=== PATIENT | female | born 1955 | race Caucasian/White ===

== ENCOUNTER 2017-08-14 13:58 | Inpatient (IN) | payer MEDICAID ==
[~2017-08-14] VITALS: Ht 167.6 cm; Wt 68.0 kg
[2017-08-14] VITALS (21 sets, daily range): BP systolic 103–154; BP diastolic 61–94
[2017-08-14] MEDS ORDERED: potassium Cl 20 mEq SR tablet PO PRN (15:00)
[2017-08-14] MEDS ORDERED: HYDROmorphone inj. 0.5 MG/0.5 ML DISP.SYRIN IV PRN ×2 (15:00)
[2017-08-14] MEDS ORDERED: magnesium Cl slow-release 64mg tablet PO PRN (15:00)
[2017-08-14] MEDS ORDERED: magnesium 2GM in 50ml NS 50 ML IV PRN (15:00)
[2017-08-14] MEDS ORDERED: magnesium 4gm in 100ml NS 100 ML IV PRN (15:00)
[2017-08-14] MEDS ORDERED: magnesium hydroxide 30ml (MOM) UD suspension PO PRN (15:00)
[2017-08-14] MEDS ORDERED: acetaminophen 325mg tablet PO PRN ×2 (15:00)
[2017-08-14] MEDS ORDERED: potassium Cl 40MEQ/NS 500ml 500 ML IV PRN (15:00)
[2017-08-14] MEDS ORDERED: mag hydrox/Alum hydrox/simeth 30ml oral suspension PO PRN (15:00)
[2017-08-14] MEDS ORDERED: HYDROcodone/acetaminophen 5mg/325mg tablet PO PRN (15:00)
[2017-08-14] MEDS ORDERED: BUPIVAcaine/PF 2.5mg/ml (0.25%) 10ml vial ONE (15:25)
[2017-08-14] MEDS ORDERED: BUPIVAcaine 0.5% inj/PF 30 ml vial ONE (15:26)
[2017-08-14] MEDS: normal saline 1000ml 1,000 ML IV SCH (15:41)
[2017-08-14] MEDS: ceFAZolin 1GM/D5W- ADD-VANTAGE 50 ML IV SCH ×3 (15:42→23:14)
[2017-08-14] MEDS ORDERED: midazolam 2 mg/2 ml injection ONE (16:17)
[2017-08-14] MEDS ORDERED: fentaNYL /PF 50mcg/ml 5ml ampule ONE (16:17)
[2017-08-14] MEDS ORDERED: sevoflurane 250ml liquid IH ONE (16:18)
[2017-08-14] MEDS ORDERED: rocuronium 10mg/ml inj IV ONE (16:36)
[2017-08-14] MEDS ORDERED: propofol inj 20 ML IV ONE (16:36)
[2017-08-14] MEDS ORDERED: LIDOcaine 2% (20mg/ml) 5ml vial ONE (16:36)
[2017-08-14] MEDS ORDERED: dexamethasone sod phosphate 4mg/ml inj. ONE (16:36)
[2017-08-14] MEDS ORDERED: glycopyrrolate 0.2mg/ml inj ONE (16:38)
[2017-08-14] MEDS ORDERED: neostigmine methylsulfate 1 MG/ML 10ml vial ONE (16:38)
[2017-08-14] MEDS ORDERED: gentamicin 40 MG/1 ML inj ONE (16:59)
[2017-08-14] MEDS ORDERED: clindamycin phosphate 150mg/ml inj. ONE (16:59)
[2017-08-14] MEDS ORDERED: ondansetron/PF 4mg/2ml inj IV PRN ×2 (17:40→18:25)
[2017-08-14] MEDS ORDERED: HYDROmorphone 1 mg/ml syringe IV PRN (17:40)
[2017-08-14] MEDS ORDERED: ipratropium/albuterol 3ml nebule IH ONE (17:45)
[2017-08-14] MEDS ORDERED: ipratropium/albuterol 3ml nebule ONE (17:48)
[2017-08-14] MEDS ORDERED: albuterol 2.5 MG/3 ML nebule NEB ONE (18:05)
[2017-08-14] MEDS ORDERED: albuterol 2.5 MG/3 ML nebule ONE (18:05)
[2017-08-14] MEDS ORDERED: ringers solution, lacted 1,000 ML IV SCH (18:24)
[2017-08-14] MEDS ORDERED: proCHLORperazine 10 MG/2 ml inj IV PRN (18:25)
[2017-08-14] MEDS ORDERED: meperidine/PF 25mg/ml syringe IV PRN ×2 (18:25)
[2017-08-14] MEDS ORDERED: morphine 4 MG/ML inj SYRINge IV PRN ×2 (18:25)
[2017-08-14] MEDS: meperidine/PF 25mg/ml syringe IV PRN ×3 (18:36→19:39)
[2017-08-14] MEDS ORDERED: acetaminophen 1,000mg/100ml IV 100 ML IV ONE (18:40)
[2017-08-14 19:26] LABS: ABG BASE EXCESS -3.7 mmol/L (-2.0-3.0); ABG OXYGEN SATURATION 94.2 % (95-98); ABG PCO2 (T) 31.2 mmHg (32.0-45.0); ABG PH (T) 7.422 (7.350-7.450); ABG PO2 (T) 71.2 mmHg (83-108); ALLEN'S TEST Positive; FCOHb 0.1 % (0.5-1.5); FLOW 6 L/min; FMetHb 0.2 % (0.3-1.12); FO2Hb 93.9 % (94-100); PATIENT TEMPERATURE 36.6; TOTAL HEMOGLOBIN 12.1 G/dl (12.0-16.0)
[2017-08-14] MEDS: ceFOXitin 2 GM ADDvantage bag 100 ML IV SCH (22:01)
[2017-08-14] MEDS: morphine 4 MG/ML inj SYRINge IV PRN (22:05)
[2017-08-14 22:08] LABS: BASOPHILS % (AUTO) 0 % (0-1); EOSINOPHILS % (AUTO) 0 % (0-6); HEMATOCRIT 33.6 % (35.0-45.0); HEMOGLOBIN 11.5 g/dl (12.0-16.0); LYMPHOCYTES # (AUTO) 0.2 X10'3 (1.1-4.8); LYMPHOCYTES % (AUTO) 2.1 % (21-51); MEAN CORPUSCULAR HEMOGLOBIN 33.7 PG (27.0-31.0); MEAN CORPUSCULAR HGB CONC 34.2 % (33.0-36.5); MEAN CORPUSCULAR VOLUME 98.5 FL (78-98); MEAN PLATELET VOLUME 8.6 FL (7.4-10.4); MONOCYTES # (AUTO) 0.2 X10'3 (0-0.9); MONOCYTES % (AUTO) 2.4 % (2-12); NEUTROPHILS % (AUTO) 95.5 % (42-75); PLATELET COUNT 95 X10'3 (140-440); RED BLOOD COUNT 3.41 X10'6 (4.20-5.60); RED CELL DISTRIBUTION WIDTH 13.6 % (11.5-14.5); WHITE BLOOD COUNT 10.4 X10'3 (4.5-11.0)
[2017-08-14 22:21] LABS: INR 0.9 INR; PARTIAL THROMBOPLASTIN TIME 32 SECONDS (22-32); PROTHROMBIN TIME 9.8 SECONDS (9.0-12.0)
[2017-08-14 22:22] LABS: ALANINE AMINOTRANSFERASE 35 U/L (12-78); ALBUMIN 2.5 G/DL (3.4-5.0); ALBUMIN/GLOBULIN RATIO 0.7 (1.1-1.5); ALKALINE PHOSPHATASE 64 IU/L (46-116); ANION GAP 12 (8-16); ASPARTATE AMINO TRANSFERASE 58 U/L (10-37); BILIRUBIN,TOTAL 0.5 MG/DL (0.1-1.0); BLOOD UREA NITROGEN 6 MG/DL (7-18); BUN/CREATININE RATIO 9.4 (6.6-38.0); CALCIUM 7.9 MG/DL (8.5-10.1); CHLORIDE 101 MMOL/L (99-107); CREATININE 0.64 MG/DL (0.40-0.90); GLUCOSE 125 MG/DL (70-104); LIPASE 54 U/L (73-393); POTASSIUM 3.1 MMOL/L (3.5-5.1); SODIUM 136 MMOL/L (135-145); TOTAL CARBON DIOXIDE 22.6 MMOL/L (24-32); TOTAL PROTEIN 6.2 G/DL (6.4-8.2); eGFR > 90 ML/MIN
[2017-08-14] MEDS ORDERED: PANT-47 PO (22:50)
[2017-08-14] MEDS ORDERED: CITA20TA2 PO (22:50)
[2017-08-14] MEDS ORDERED: AMLO-93 PO (22:50)
[2017-08-14] MEDS: temazepam 15mg capsule PO PRN (23:12)
[2017-08-14] MEDS: HYDROcodone/acetaminophen 10/325mg tab PO PRN (23:13)
[2017-08-15] MEDS: normal saline 1000ml 1,000 ML IV SCH ×3 (01:17→20:03)
[2017-08-15] MEDS: ceFOXitin 2 GM ADDvantage bag 100 ML IV SCH ×4 (03:04→19:37)
[2017-08-15] MEDS: morphine 4 MG/ML inj SYRINge IV PRN ×3 (03:04→18:54)
[2017-08-15 03:05] LABS: CLARITY,URINE SLIGHTLY CLOUDY (Clear); COLOR,URINE YELLOW (Yellow); GLUCOSE, URINE NEGATIVE (Neg); KETONES,URINE 40 mg/dl (Neg); LEUKOCYTE ESTERASE ,URINE NEGATIVE (Neg); NITRITES, URINE NEGATIVE (Neg); OCCULT BLOOD,URINE NEGATIVE (Neg); PROTEIN,URINE NEGATIVE (Neg); UROBILINOGEN,URINE 0.2 E.U/dL (0.2-1.0)
[2017-08-15 03:10] LABS: UA COLLECTION TYPE STRAIGHT CATH
[2017-08-15 03:18] LABS: BACTERIA,URINE FEW /HPF (Neg); RBC,URINE NONE SEEN /HPF (0-2); SQUAMOUS EPITHELIAL CELL,UR FEW /LPF (FEW); WBC,URINE 0-4 /HPF (0-4)
[2017-08-15 04:00] VITALS: BP 111/59
[2017-08-15 05:19] LABS: BASOPHILS % (AUTO) 0.1 % (0-1); EOSINOPHILS % (AUTO) 0 % (0-6); HEMATOCRIT 32.7 % (35.0-45.0); HEMOGLOBIN 11.2 g/dl (12.0-16.0); LYMPHOCYTES # (AUTO) 0.3 X10'3 (1.1-4.8); LYMPHOCYTES % (AUTO) 3.4 % (21-51); MEAN CORPUSCULAR HEMOGLOBIN 34.2 PG (27.0-31.0); MEAN CORPUSCULAR HGB CONC 34.2 % (33.0-36.5); MEAN CORPUSCULAR VOLUME 100.1 FL (78-98); MEAN PLATELET VOLUME 9.6 FL (7.4-10.4); MONOCYTES # (AUTO) 0.4 X10'3 (0-0.9); MONOCYTES % (AUTO) 3.8 % (2-12); NEUTROPHILS # (AUTO) 9.4 X10'3 (1.8-7.7); NEUTROPHILS % (AUTO) 92.7 % (42-75); PLATELET COUNT 90 X10'3 (140-440); RED BLOOD COUNT 3.27 X10'6 (4.20-5.60); WHITE BLOOD COUNT 10.1 X10'3 (4.5-11.0)
[2017-08-15] MEDS: HYDROcodone/acetaminophen 10/325mg tab PO PRN ×5 (05:27→21:32)
[2017-08-15 06:00] VITALS: BP 122/70
[2017-08-15 06:05] LABS: ALANINE AMINOTRANSFERASE 41 U/L (12-78); ALBUMIN 2.5 G/DL (3.4-5.0); ALBUMIN/GLOBULIN RATIO 0.6 (1.1-1.5); ALKALINE PHOSPHATASE 75 IU/L (46-116); ANION GAP 11 (8-16); ASPARTATE AMINO TRANSFERASE 66 U/L (10-37); BILIRUBIN,TOTAL 0.4 MG/DL (0.1-1.0); BLOOD UREA NITROGEN 7 MG/DL (7-18); BUN/CREATININE RATIO 10.1 (6.6-38.0); CHLORIDE 102 MMOL/L (99-107); CREATININE 0.69 MG/DL (0.40-0.90); GLUCOSE 119 MG/DL (70-104); MAGNESIUM 1.5 MG/DL (1.5-2.4); POTASSIUM 3.5 MMOL/L (3.5-5.1); SODIUM 136 MMOL/L (135-145); TOTAL CARBON DIOXIDE 22.7 MMOL/L (24-32); TOTAL PROTEIN 6.4 G/DL (6.4-8.2); eGFR 86 ML/MIN
[2017-08-15] MEDS: K and/or MAG REPLACEMENT MC SCH ×2 (07:02→07:35)
[2017-08-15] MEDS: ceFAZolin 1GM/D5W- ADD-VANTAGE 50 ML IV SCH (09:49)
[2017-08-15 10:51] VITALS: BP 115/71
[2017-08-15] MEDS: ondansetron/PF 4mg/2ml inj IV PRN (12:43)
[2017-08-15 20:00] VITALS: BP 119/65
[2017-08-15] MEDS: temazepam 15mg capsule PO PRN (22:41)
[2017-08-16] VITALS: BP 123/71
[2017-08-16] MEDS: morphine 4 MG/ML inj SYRINge IV PRN ×5 (00:12→23:43)
[2017-08-16] MEDS: ceFOXitin 2 GM ADDvantage bag 100 ML IV SCH (02:16)
[2017-08-16] MEDS: HYDROcodone/acetaminophen 10/325mg tab PO PRN ×4 (03:37→20:59)
[2017-08-16] MEDS: normal saline 1000ml 1,000 ML IV SCH ×2 (03:40→16:59)
[2017-08-16 06:03] LABS: BASOPHILS # (AUTO) 0.1 X10'3 (0-0.2); BASOPHILS % (AUTO) 1.3 % (0-1); EOSINOPHILS % (AUTO) 0.5 % (0-6); HEMATOCRIT 35.6 % (35.0-45.0); LYMPHOCYTES # (AUTO) 0.7 X10'3 (1.1-4.8); LYMPHOCYTES % (AUTO) 10.2 % (21-51); MEAN CORPUSCULAR HEMOGLOBIN 34.2 PG (27.0-31.0); MEAN CORPUSCULAR HGB CONC 33.6 % (33.0-36.5); MEAN PLATELET VOLUME 9.5 FL (7.4-10.4); MONOCYTES # (AUTO) 0.5 X10'3 (0-0.9); MONOCYTES % (AUTO) 6.6 % (2-12); NEUTROPHILS # (AUTO) 5.6 X10'3 (1.8-7.7); NEUTROPHILS % (AUTO) 81.4 % (42-75); PLATELET COUNT 115 X10'3 (140-440); RED BLOOD COUNT 3.49 X10'6 (4.20-5.60); RED CELL DISTRIBUTION WIDTH 13.3 % (11.5-14.5); WHITE BLOOD COUNT 6.9 X10'3 (4.5-11.0)
[2017-08-16 06:18] LABS: ALANINE AMINOTRANSFERASE 49 U/L (12-78); ALBUMIN 2.6 G/DL (3.4-5.0); ALBUMIN/GLOBULIN RATIO 0.6 (1.1-1.5); ALKALINE PHOSPHATASE 81 IU/L (46-116); ANION GAP 9 (8-16); ASPARTATE AMINO TRANSFERASE 89 U/L (10-37); BILIRUBIN,TOTAL 0.5 MG/DL (0.1-1.0); BLOOD UREA NITROGEN 5 MG/DL (7-18); BUN/CREATININE RATIO 8.1 (6.6-38.0); CALCIUM 8.8 MG/DL (8.5-10.1); CHLORIDE 100 MMOL/L (99-107); CREATININE 0.62 MG/DL (0.40-0.90); GLUCOSE 89 MG/DL (70-104); MAGNESIUM 1.6 MG/DL (1.5-2.4); SODIUM 138 MMOL/L (135-145); TOTAL CARBON DIOXIDE 28.7 MMOL/L (24-32); TOTAL PROTEIN 6.9 G/DL (6.4-8.2); eGFR > 90 ML/MIN
[2017-08-16 07:10] LABS: POTASSIUM 2.9 MMOL/L (3.5-5.1)
[2017-08-16] MEDS: pantoprazole 40mg Tablet.DR PO SCH (08:00)
[2017-08-16] MEDS: K and/or MAG REPLACEMENT MC SCH (08:00)
[2017-08-16] MEDS: methylnaltrexone br 12mg/0.6ml inj***SubQ only SQ SCH (08:01)
[2017-08-16 08:19] VITALS: BP 140/79
[2017-08-16] MEDS: potassium Cl 40MEQ/NS 500ml 500 ML IV PRN ×2 (10:47→17:49)
[2017-08-16 11:00] VITALS: BP 117/73
[2017-08-16 20:00] VITALS: BP 137/68
[2017-08-16] MEDS: temazepam 15mg capsule PO PRN (20:58)
[2017-08-16] MEDS: ondansetron/PF 4mg/2ml inj IV PRN (20:58)
[2017-08-17] VITALS: BP 140/65
[2017-08-17] MEDS: normal saline 1000ml 1,000 ML IV SCH ×3 (01:50→20:25)
[2017-08-17] MEDS: morphine 4 MG/ML inj SYRINge IV PRN ×2 (04:20→08:34)
[2017-08-17 04:50] LABS: BASOPHILS % (AUTO) 0.4 % (0-1); HEMATOCRIT 33.3 % (35.0-45.0); HEMOGLOBIN 11.4 g/dl (12.0-16.0); LYMPHOCYTES # (AUTO) 0.8 X10'3 (1.1-4.8); LYMPHOCYTES % (AUTO) 16.5 % (21-51); MEAN CORPUSCULAR HEMOGLOBIN 34.4 PG (27.0-31.0); MEAN CORPUSCULAR HGB CONC 34.4 % (33.0-36.5); MEAN CORPUSCULAR VOLUME 100.1 FL (78-98); MEAN PLATELET VOLUME 8.7 FL (7.4-10.4); MONOCYTES # (AUTO) 0.6 X10'3 (0-0.9); MONOCYTES % (AUTO) 12.8 % (2-12); NEUTROPHILS # (AUTO) 3.2 X10'3 (1.8-7.7); NEUTROPHILS % (AUTO) 69.3 % (42-75); PLATELET COUNT 126 X10'3 (140-440); RED BLOOD COUNT 3.32 X10'6 (4.20-5.60); RED CELL DISTRIBUTION WIDTH 13.4 % (11.5-14.5); WHITE BLOOD COUNT 4.6 X10'3 (4.5-11.0)
[2017-08-17 05:10] LABS: ALANINE AMINOTRANSFERASE 60 U/L (12-78); ALBUMIN 2.5 G/DL (3.4-5.0); ALBUMIN/GLOBULIN RATIO 0.6 (1.1-1.5); ALKALINE PHOSPHATASE 136 IU/L (46-116); ANION GAP 9 (8-16); ASPARTATE AMINO TRANSFERASE 98 U/L (10-37); BILIRUBIN,TOTAL 0.5 MG/DL (0.1-1.0); BLOOD UREA NITROGEN 3 MG/DL (7-18); BUN/CREATININE RATIO 5.9 (6.6-38.0); CALCIUM 8.3 MG/DL (8.5-10.1); CHLORIDE 100 MMOL/L (99-107); CREATININE 0.51 MG/DL (0.40-0.90); GLUCOSE 92 MG/DL (70-104); MAGNESIUM 1.4 MG/DL (1.5-2.4); SODIUM 137 MMOL/L (135-145); TOTAL CARBON DIOXIDE 27.7 MMOL/L (24-32); TOTAL PROTEIN 6.4 G/DL (6.4-8.2); eGFR > 90 ML/MIN
[2017-08-17 05:14] LABS: POTASSIUM 2.8 MMOL/L (3.5-5.1)
[2017-08-17 07:34] VITALS: BP 126/72
[2017-08-17] MEDS: K and/or MAG REPLACEMENT MC SCH (08:00)
[2017-08-17] MEDS: pantoprazole 40mg Tablet.DR PO SCH (08:32)
[2017-08-17] MEDS: potassium Cl 20 mEq SR tablet PO PRN ×2 (08:33→13:13)
[2017-08-17] MEDS: methylnaltrexone br 12mg/0.6ml inj***SubQ only SQ SCH (08:35)
[2017-08-17 11:00] VITALS: BP 138/67
[2017-08-17] MEDS: HYDROcodone/acetaminophen 10/325mg tab PO PRN ×3 (11:24→20:23)
[2017-08-17] MEDS ORDERED: potassium Cl 20 mEq SR tablet PO PRN ×2 (17:55)
[2017-08-17] MEDS ORDERED: magnesium Cl slow-release 64mg tablet PO PRN (17:55)
[2017-08-17 18:00] VITALS: BP 160/80
[2017-08-17] MEDS: temazepam 15mg capsule PO PRN ×2 (20:24→22:04)
[2017-08-17] MEDS ORDERED: magnesium hydroxide 30ml (MOM) UD suspension PO ONE (22:47)
[2017-08-18] VITALS: BP 126/87
[2017-08-18] MEDS: ketorolac tromethamine 15mg/ml inj. IV SCH ×4 (02:13→21:34)
[2017-08-18] MEDS: HYDROcodone/acetaminophen 10/325mg tab PO PRN ×4 (02:19→17:10)
[2017-08-18 05:36] LABS: BASOPHILS % (AUTO) 0.2 % (0-1); EOSINOPHILS # (AUTO) 0.1 X10'3 (0-0.9); EOSINOPHILS % (AUTO) 1.5 % (0-6); HEMATOCRIT 35.7 % (35.0-45.0); HEMOGLOBIN 12.3 g/dl (12.0-16.0); LYMPHOCYTES % (AUTO) 17.9 % (21-51); MEAN CORPUSCULAR HGB CONC 34.4 % (33.0-36.5); MEAN CORPUSCULAR VOLUME 98.7 FL (78-98); MEAN PLATELET VOLUME 8.3 FL (7.4-10.4); MONOCYTES # (AUTO) 0.8 X10'3 (0-0.9); MONOCYTES % (AUTO) 14.5 % (2-12); NEUTROPHILS # (AUTO) 3.6 X10'3 (1.8-7.7); NEUTROPHILS % (AUTO) 65.9 % (42-75); PLATELET COUNT 156 X10'3 (140-440); RED BLOOD COUNT 3.61 X10'6 (4.20-5.60); WHITE BLOOD COUNT 5.5 X10'3 (4.5-11.0)
[2017-08-18 06:47] LABS: ALANINE AMINOTRANSFERASE 65 U/L (12-78); ALBUMIN 2.7 G/DL (3.4-5.0); ALBUMIN/GLOBULIN RATIO 0.6 (1.1-1.5); ALKALINE PHOSPHATASE 133 IU/L (46-116); ANION GAP 7 (8-16); BILIRUBIN,TOTAL 0.6 MG/DL (0.1-1.0); BLOOD UREA NITROGEN 5 MG/DL (7-18); BUN/CREATININE RATIO 9.1 (6.6-38.0); CALCIUM 8.8 MG/DL (8.5-10.1); CHLORIDE 101 MMOL/L (99-107); CREATININE 0.55 MG/DL (0.40-0.90); GLUCOSE 110 MG/DL (70-104); MAGNESIUM 1.8 MG/DL (1.5-2.4); SODIUM 135 MMOL/L (135-145); TOTAL CARBON DIOXIDE 27.5 MMOL/L (24-32); TOTAL PROTEIN 6.9 G/DL (6.4-8.2); eGFR > 90 ML/MIN
[2017-08-18 07:01] LABS: POTASSIUM 4.3 MMOL/L (3.5-5.1)
[2017-08-18 07:08] LABS: ASPARTATE AMINO TRANSFERASE 92 U/L (10-37)
[2017-08-18 08:00] VITALS: BP 141/83
[2017-08-18] MEDS: K and/or MAG REPLACEMENT MC SCH (08:00)
[2017-08-18] MEDS: amLODIPine 5mg tablet PO SCH (08:11)
[2017-08-18] MEDS: lisinopril 20mg tablet PO SCH (08:11)
[2017-08-18] MEDS: citalopram 20mg tablet PO SCH (08:11)
[2017-08-18] MEDS: pantoprazole 40mg Tablet.DR PO SCH (08:11)
[2017-08-18] MEDS: enoxaparin 40mg/0.4ml syringe SUBCUT SCH (08:14)
[2017-08-18 11:31] VITALS: BP 96/61
[2017-08-18 18:00] VITALS: BP 143/79
[2017-08-18] MEDS: diatr meglu/diatrizoate 30ml oral sol.-(3 dose) bottle PO SCH (21:34)
[2017-08-18] MEDS: temazepam 15mg capsule PO PRN (21:35)
[2017-08-18] MEDS: morphine 4 MG/ML inj SYRINge IV PRN (21:59)
[2017-08-19] VITALS: BP 149/74
[2017-08-19] MEDS: ketorolac tromethamine 15mg/ml inj. IV SCH ×4 (02:33→20:07)
[2017-08-19] MEDS: morphine 4 MG/ML inj SYRINge IV PRN (04:05)
[2017-08-19 05:19] LABS: BASOPHILS % (AUTO) 0.5 % (0-1); EOSINOPHILS # (AUTO) 0.1 X10'3 (0-0.9); EOSINOPHILS % (AUTO) 2.7 % (0-6); HEMATOCRIT 33.5 % (35.0-45.0); HEMOGLOBIN 11.6 g/dl (12.0-16.0); LYMPHOCYTES % (AUTO) 18.8 % (21-51); MEAN CORPUSCULAR HEMOGLOBIN 34.1 PG (27.0-31.0); MEAN CORPUSCULAR HGB CONC 34.5 % (33.0-36.5); MEAN CORPUSCULAR VOLUME 98.6 FL (78-98); MEAN PLATELET VOLUME 8.5 FL (7.4-10.4); MONOCYTES # (AUTO) 0.8 X10'3 (0-0.9); MONOCYTES % (AUTO) 16.5 % (2-12); NEUTROPHILS # (AUTO) 3.2 X10'3 (1.8-7.7); NEUTROPHILS % (AUTO) 61.5 % (42-75); PLATELET COUNT 179 X10'3 (140-440); RED CELL DISTRIBUTION WIDTH 12.9 % (11.5-14.5); WHITE BLOOD COUNT 5.1 X10'3 (4.5-11.0)
[2017-08-19 05:31] LABS: ALANINE AMINOTRANSFERASE 51 U/L (12-78); ALBUMIN 2.5 G/DL (3.4-5.0); ALBUMIN/GLOBULIN RATIO 0.7 (1.1-1.5); ALKALINE PHOSPHATASE 112 IU/L (46-116); ANION GAP 8 (8-16); ASPARTATE AMINO TRANSFERASE 50 U/L (10-37); BILIRUBIN,TOTAL 0.4 MG/DL (0.1-1.0); BLOOD UREA NITROGEN 10 MG/DL (7-18); BUN/CREATININE RATIO 15.4 (6.6-38.0); CHLORIDE 103 MMOL/L (99-107); CREATININE 0.65 MG/DL (0.40-0.90); GLUCOSE 102 MG/DL (70-104); MAGNESIUM 1.9 MG/DL (1.5-2.4); POTASSIUM 3.5 MMOL/L (3.5-5.1); SODIUM 138 MMOL/L (135-145); TOTAL CARBON DIOXIDE 27.4 MMOL/L (24-32); TOTAL PROTEIN 6.2 G/DL (6.4-8.2); eGFR > 90 ML/MIN
[2017-08-19 07:14] VITALS: BP 123/75
[2017-08-19] MEDS: diatr meglu/diatrizoate 30ml oral sol.-(3 dose) bottle PO SCH ×2 (07:29→09:40)
[2017-08-19] MEDS: lisinopril 20mg tablet PO SCH (07:30)
[2017-08-19] MEDS: pantoprazole 40mg Tablet.DR PO SCH (07:30)
[2017-08-19] MEDS: amLODIPine 5mg tablet PO SCH (07:30)
[2017-08-19] MEDS: enoxaparin 40mg/0.4ml syringe SUBCUT SCH (07:31)
[2017-08-19] MEDS: HYDROcodone/acetaminophen 10/325mg tab PO PRN ×3 (07:46→20:07)
[2017-08-19] MEDS: K and/or MAG REPLACEMENT MC SCH (08:00)
[2017-08-19 12:00] VITALS: BP 136/83
[2017-08-19] MEDS: normal saline 1000ml 1,000 ML IV SCH (14:13)
[2017-08-19] MEDS: citalopram 20mg tablet PO SCH (14:13)
[2017-08-19 18:00] VITALS: BP 142/61
[2017-08-19] MEDS: magnesium hydroxide 30ml (MOM) UD suspension PO SCH (20:00)
[2017-08-19] MEDS: temazepam 15mg capsule PO PRN (21:40)
[2017-08-20] VITALS: BP 103/61
[2017-08-20] MEDS: HYDROcodone/acetaminophen 10/325mg tab PO PRN ×3 (01:26→12:21)
[2017-08-20] MEDS: ketorolac tromethamine 15mg/ml inj. IV SCH ×4 (01:26→21:14)
[2017-08-20 05:08] LABS: MAGNESIUM 1.6 MG/DL (1.5-2.4); POTASSIUM 3.7 MMOL/L (3.5-5.1)
[2017-08-20] MEDS: enoxaparin 40mg/0.4ml syringe SUBCUT SCH (07:30)
[2017-08-20] MEDS: lisinopril 20mg tablet PO SCH (07:30)
[2017-08-20] MEDS: pantoprazole 40mg Tablet.DR PO SCH (07:30)
[2017-08-20] MEDS: amLODIPine 5mg tablet PO SCH (07:31)
[2017-08-20] MEDS: citalopram 20mg tablet PO SCH (07:31)
[2017-08-20] MEDS: magnesium hydroxide 30ml (MOM) UD suspension PO SCH ×2 (07:37→20:00)
[2017-08-20] MEDS: K and/or MAG REPLACEMENT MC SCH (08:00)
[2017-08-20 11:00] VITALS: BP 113/69
[2017-08-20] MEDS ORDERED: methylnaltrexone br 12mg/0.6ml inj***SubQ only SQ SCH (11:34)
[2017-08-20 20:00] VITALS: BP 105/61
[2017-08-20] MEDS: temazepam 15mg capsule PO PRN (21:14)
[2017-08-20 23:30] VITALS: BP 114/63
[2017-08-20] MEDS: morphine 4 MG/ML inj SYRINge IV PRN (23:39)
[2017-08-21] MEDS: ketorolac tromethamine 15mg/ml inj. IV SCH ×3 (02:19→14:24)
[2017-08-21] MEDS: HYDROcodone/acetaminophen 10/325mg tab PO PRN ×2 (03:55→11:52)
[2017-08-21 05:15] LABS: MAGNESIUM 1.7 MG/DL (1.5-2.4); POTASSIUM 3.9 MMOL/L (3.5-5.1)
[2017-08-21] MEDS: magnesium hydroxide 30ml (MOM) UD suspension PO SCH (07:04)
[2017-08-21] MEDS: morphine 4 MG/ML inj SYRINge IV PRN (07:18)
[2017-08-21 08:00] VITALS: BP 114/65
[2017-08-21] MEDS: K and/or MAG REPLACEMENT MC SCH (08:00)
[2017-08-21] MEDS ORDERED: HYDR-569 PO (08:49)
[2017-08-21] MEDS: lisinopril 20mg tablet PO SCH (09:40)
[2017-08-21] MEDS: citalopram 20mg tablet PO SCH (09:41)
[2017-08-21] MEDS: pantoprazole 40mg Tablet.DR PO SCH (09:41)
[2017-08-21] MEDS: amLODIPine 5mg tablet PO SCH (09:41)
[2017-08-21] MEDS: enoxaparin 40mg/0.4ml syringe SUBCUT SCH (09:43)
[2017-08-21 11:00] VITALS: BP 114/54
== END 2017-08-21 14:35 | disposition home or self-care (01) | DRG 223 ==
LOC: ER 13:58 → ED HOLD 14:59 → SUR 3N 21:12
PROVIDERS: ADMIT Family Medicine; ATTEND Internal Medicine
PROC: 0WQF0ZZ Repair Abdominal Wall, Open Approach (ICD-10-PCS; 2017-08-14)
PROC: 0DTJ0ZZ Resection of Appendix, Open Approach (ICD-10-PCS; 2017-08-14)
PROC: 0DJD4ZZ Inspection of Lower Intestinal Tract, Percutaneous Endoscopic Approach (ICD-10-PCS; principal; 2017-08-14 16:18)
DX: K35.80 Unspecified acute appendicitis (principal); E44.0 Moderate protein-calorie malnutrition; E87.5 Hyperkalemia; E87.1 Hypo-osmolality and hyponatremia; K56.7 Ileus, unspecified; I10 Essential (primary) hypertension; Z68.24 Body mass index [BMI] 24.0-24.9, adult; E87.6 Hypokalemia; F32.9 Major depressive disorder, single episode, unspecified; F41.1 Generalized anxiety disorder; K21.9 Gastro-esophageal reflux disease without esophagitis; F17.210 Nicotine dependence, cigarettes, uncomplicated; K42.9 Umbilical hernia without obstruction or gangrene; B19.20 Unspecified viral hepatitis C without hepatic coma; R33.9 Retention of urine, unspecified; R73.9 Hyperglycemia, unspecified; R74.0 Nonspecific elevation of levels of transaminase and lactic acid dehydrogenase [LDH]; Z79.899 Other long term (current) drug therapy; Z79.01 Long term (current) use of anticoagulants; Z79.82 Long term (current) use of aspirin
CPT/HCPCS: 36415; 36600; 71045; 74176; 80053; 81001; 82803; 83690; 83735; 84132; 85018; 85025; 85610; 85730; 86885; 86900; 86901; 87070; 87075; 87076; 87077; 87185; 87186; 93005; 94640; 99285; A4315; A4353; A6212; A6213; A6251; A6253; A6255; A6266; A6449; A7000; J0131; J0690; J0694; J1100; J1580; J1650; J1885; J2001; J2175; J2250; J2270; J2405; J2704; J2710; J3010; J3480; J3490; J7030; J7120; Q9963